=== PATIENT | female | born 1945 | race Two or more races ===

== ENCOUNTER → 2016-06-15 | Outpatient (CLI) | payer MEDICAID ==
--- NOTE | ~2016-06-15 | US77 ---
[facility] A Service of [facility] RADIOLOGY TEXT RESULTS PATIENT: ZAYDA MIN LOCATION: [facility] : 41 UNIT #: [id number] AGE: [address]: DAMARIS STOVALL APRN SEX: F ORDER DR: [id number] [facility] [address] [place], [place] [address] [id number] O MR#: [id number] Acc #: [id number] NAME: ZAYDA MIN : 1945 SEX: F STUDY DATE/TIME: 06/15/2016 12:47 UNIT: [facility] ROOM: STUDY DESCRIPTION: US Kidney Bilateral Complete Attending Physician: Gabby Stovall M.D. Ordering Physician: Gabby Stovall M.D. Primary Care Physician: Manuel Chacon M.D. MEDICAL IMAGING REPORT This report is preliminary unless electronic signature is present EXAM Renal ultrasound. HISTORY Abnormal diagnostic imaging of the kidneys. Abnormal appearance of kidneys on previous MRI performed in [place]. PROCEDURE Grayscale and Doppler imaging of the kidneys and bladder. COMPARISON STUDIES None. Previous outside imaging is not available. FINDINGS The right kidney measures 11.7 cm. There is a cyst in the right kidney that measures 3.6 cm. A second cyst in the mid to lower right kidney measures 1.8 cm. There is a 3.1-cm cyst in the left lid. The left kidney measures 12.1 cm. A second cyst in the left kidney measures 2.6 cm. No hydronephrosis. Unremarkable bladder. Bladder almost completely empties on postvoid images with residual volume of 5 mL. IMPRESSION Bilateral renal cysts. No hydronephrosis. Dictated by... Chucky Clifton M.D. THIS IS AN ELECTRONICALLY VERIFIED REPORT Chucky Clifton M.D. at 06/16/2016 7:18 AM FELIPA/breann [facility] A Service of [facility] RADIOLOGY TEXT RESULTS PATIENT: ZAYDA MIN [id number] 41 UNIT #: [id number] AGE: [address]: DAMARIS TSOVALL APRN SEX: F ORDER DR: TD: 06/15/2016 16:49 JOB #: [id number] MEDICAL IMAGING REPORT COPY
== END | disposition home or self-care (01) ==
LOC: CWCC 12:26
DX: N28.1 Cyst of kidney, acquired (principal)
CPT/HCPCS: 76770

== ENCOUNTER → 2016-09-24 | Outpatient (CLI) | payer MEDICAID ==
--- NOTE | ~2016-09-24 | EKG ---
PATIENT: ZAYDA MIN UNIT #: [id number] Ventricular Rate: 89 BPM Atrial Rate: 89 BPM P-R Interval: 172 ms QRS Duration: 98 ms Q-T Interval: 372 ms QTC Calculation(Bezet): 452 ms P Mentcle: 43 degrees Calculated R Mentcle: -25 degrees Calculated T Mentcle: 28 degrees Diagnosis Line: Normal sinus rhythm Diagnosis Line: Normal ECG Diagnosis Line: No previous ECGs available Diagnosis Line: Confirmed by GADIEL COFFEY MD ([id number]) on 09/24/2016 Diagnosis Line: 6:56:25 PM INTERPRETING MD: ERLINDA MEJIA
== END | disposition home or self-care (01) ==
LOC: CEKG 11:38
DX: R06.02 Shortness of breath (principal); R00.2 Palpitations
CPT/HCPCS: 93005